=== PATIENT | female | born 1935 | race Caucasian/White ===

== ENCOUNTER 2018-10-16 08:25 | Emergency (ER) | payer MEDICARE, OTHER ==
[~2018-10-16] VITALS: Wt 54.7 kg
--- NOTE | 2018-10-16 10:49 | ERD ---
ER Documentation Chief Complaint Chief Complaint LEFT RIB PAIN S/P GLF 5 DAYS AGO, NO KO, PAIN ON LEFT SIDE OF HEAD ROS All systems reviewed and are negative except as per history of present illness. PMhx/Soc History of Surgery: No Anesthesia Reaction: No Hx Neurological Disorder: No Hx Respiratory Disorders: No Hx Cardiac Disorders: Yes (HTN) Hx Psychiatric Problems: No Hx Alcohol Use: No Hx Substance Use: No Hx Tobacco Use: No Smoking Status: Never smoker Physical Exam Vitals Vital Signs Date Temp Pulse Resp B/P (MAP) Pulse Ox O2 O2 Flow FiO2 Time Delivery Rate 10/16/18 18 139/73 09:46 (95) 10/16/18 97.0 65 17 177/77 97 08:29 (110) Physical Exam Const: No acute distress Head: Atraumatic Eyes: Normal Conjunctiva ENT: Normal External Ears, Nose and Mouth. Neck: Full range of motion. No meningismus. Resp: Clear to auscultation bilaterally Cardio: Regular rate and rhythm, no murmurs Abd: Soft, non tender, non distended. Normal bowel sounds Skin: No petechiae or rashes Back: No midline or flank tenderness Ext: No cyanosis, or edema Neur: Awake and alert Psych: Normal Mood and Affect Results 24 hrs Current Medications Medications Dose Sig/Christy Start Time Status Last (Trade) Ordered Route PRN Stop Time Admin Dose Reason Admin Clonidine 0.1 mg ONCE ONCE 10/16/18 DC ([facility]) PO 09:30 10/16/18 09:31 Procedures/MDM Is an 83-year-old female who presented to the emergency department with blunt head and chest trauma. A CT scan of the patient's head showed no intracerebral hemorrhage mass-effect or midline shift. A CT scan of the patient's chest reviewed by the radiologist myself and given follow-up: No lung contusion, hemothorax, pneumothorax or mediastinal hemorrhage. Prominent pleural-based intralobular septa with ground-glass interstitial densities at the lung bases compatible with chronic interstitial lung disease. Old granulomatous disease. No chest wall contusion or fracture is visualized. Vascular calcifications. The patient was hypertensive upon arrival to the emergency department. However she states she had not taken her antihypertensive medications. Clonidine had initially been ordered however the patient's blood pressure was 139 systolic upon recheck. I did feel the patient's elevated blood pressure could also be a result of pain. The patient was discharged home with anti-inflammatories as I did feel this was a rib injury with no evidence of pneumothorax. The patient was discharged home in fair condition. They were instructed to return to the emergency department at any time if there was any worsening of their condition. The patient stated they would follow up with their PCP in the next 24-48 hours to initiate a suitable medication regimen under the care of their PCP as well as to allow their PCP to monitor any drug reactions. The patient was discharged home with prescriptions after they gave informed consent to the new medication. They were also fully informed by myself on the adverse effects and adverse drug interactions in order to provide adequate safeguards to prevent possible adverse reactions to medications. Departure Diagnosis: Primary Impression: Rib injury Additional Impression: Blunt head trauma Encounter type: initial encounter Qualified Codes: S09.8XXA - Other specified injuries of head, initial encounter Condition: Fair LEDY MAHARAJ MD Oct 16, 2018 10:49
[2018-10-16] MEDS ORDERED: IBUP-1542 PO (10:55)
[2018-10-16 11:03] VITALS: BP 136/76; PULSE 63; RESP 18
== END 2018-10-16 11:06 | disposition home or self-care (01) ==
LOC: E/R 08:25
DX: S29.001A Unspecified injury of muscle and tendon of front wall of thorax, initial encounter (principal); S09.8XXA Other specified injuries of head, initial encounter; I10 Essential (primary) hypertension; X58.XXXA Exposure to other specified factors, initial encounter; Y92.9 Unspecified place or not applicable
CPT/HCPCS: 70450; 71250